=== PATIENT | female | born 1970 | race Asian ===

== ENCOUNTER 2017-03-29 15:29 | Emergency (ER) | payer OTHER ==
[~2017-03-29] VITALS: Ht 165.1 cm; Wt 61.5 kg
[2017-03-29] MEDS ORDERED: MELO-184 PO (15:41)
[2017-03-29] MEDS ORDERED: PROPOFOL 10 MG/ML, 20ML ONE (16:19)
[2017-03-29] MEDS ORDERED: KETAMINE 10 MG/ML, 20ML ONE (16:19)
[2017-03-29] MEDS ORDERED: KETAMINE 100 MG/ML, 5ML IV ONE (16:30)
[2017-03-29] MEDS ORDERED: PROPOFOL 10 MG/ML, 100ML IV ONE (16:30)
[2017-03-29] MEDS ORDERED: ONDANSETRON 2MG/ML, 2ML ONE (16:32)
[2017-03-29] MEDS ORDERED: ONDANSETRON 2MG/ML, 2ML IVPush ONE (17:00)
[2017-03-29 19:02] VITALS: BP 117/80
== END 2017-03-29 19:05 | disposition home or self-care (01) ==
LOC: ED 18:41
DX: S03.00XA Dislocation of jaw, unspecified side, initial encounter (principal); F17.210 Nicotine dependence, cigarettes, uncomplicated; X58.XXXA Exposure to other specified factors, initial encounter; Y93.89 Activity, other specified; Y92.89 Other specified places as the place of occurrence of the external cause; Y99.8 Other external cause status
CPT/HCPCS: 21480; 70100; 96374; 96375; 99152; 99153; 99285; J2405; J2704